=== PATIENT | female | born 1995 | race Two or more races ===

== ENCOUNTER 2024-05-07 10:18 | Outpatient (AMB) | payer MEDICAID, SELFPAY ==
[2024-05-07 10:36] VITALS: BP 110/73; PULSE 99; RESP 18; TEMP 36.8; O2SAT 95; BMI 23.9
--- NOTE | 2024-05-07 10:36 | OBCLNT_ITS ---
Vital Signs 05/07/24 10:36 Height 1.68 m Height Method Stated Weight 67.642 kg Weight Measurement Method Standing Scale BMI 23.9 BP 110/73 Blood Pressure Source Automatic Cuff Blood Pressure Location Left Upper Arm Position Sitting Respiration 18 Pulse 99 Pulse Source Monitor Temp 98.3 F Temp Source Oral Pulse Oximetry (%) 95 Oxygen Delivery Method Room Air Allergies/Home Meds Allergies & Medications Allergies No Known Allergies Allergy (Verified 05/07/24 10:38) Medication Reconciliation No Known Home Medications 05/07/24 [History Confirmed 05/07/24] Intake Visit Data Collection New Patient or Established: Established Patient (seen at [facility] within 3 years) Reason for Visit:: care Seen by Clinical Staff ONLY (RN/MA): No Technical Applications Scientist Required: Yes Technical Applications Scientist's name/title: Regla Santacruz Do You Feel Safe at Home: Yes Authorities Contacted: N/A PCP or OBGYN visit in last 3 months: No Hx Now: Yes Are you currently on any form of Control: No Last menstrual period: 10/09/23 Pain Present Currently: No Pain Scale Used: Newberry-Hernandez/Numerical Pain scale:: 0 Smoking Status Smoking Status: Never smoker Questionnaires Covid-19 Vaccine Questionnaire Has patient been vacinated for Covid-19 Have you been vacinated for Covid-19: No PHQ-9 PHQ-2 Over the last 2 weeks, how often have you been bothered by any of the following problems? 1. Little interest or pleasure in doing things: not at all 2. Feeling down, depressed, or hopeless: not at all Total score: 0 PHQ-9 3. Trouble falling or staying asleep, or sleeping too much: Not at all 4. Feeling tired or having little energy: Not at all 5. Poor appetite or overeating: Not at all 6. Feeling bad about yourself - or that you are a failure or have let yourself or your family down: Not at all 7. Trouble concentrating on things, such as reading the newspaper or watching television: Not at all 8. Moving or speaking so slowly that other people could have noticed? - Or the opposite - being so fidgety or restless that you have been moving around a lot more than usual: not at all 9. Thoughts that you would be better off or of hurting yourself in some way: Not at all Total score: 0 Source: Developed by Drs. Jose Manuel Jauregui, Jessika Blankenship, Long Kang and colleagues, with an educational eugene from [employer]. Depression screen completed yes Social History Living Situation History Marital Status: Single Lives With: Family Housing: House Tobacco History Smoking Status: Never smoker Second Hand Smoke Exposure: No Alcohol History Alcohol Intake: Never Substance Use History Substance Use: none Domestic Abuse History Do You Feel Safe at Home: Yes Past Medical History Past Medical History Have you ever been diagnosed with any of the following: Neurological Problems Cerebrovascular Accident (CVA): No Transient Ischemic Attacks (TIA): No Dementia: No Alzheimer's Disease: No Parkinson's Disease: No Brain Tumor: No Meningitis: No Seizures: No Epilepsy: No Multiple Sclerosis: No Cerebral Palsy: No Amyotrophic Lateral Sclerosis (ALS/Lizeth Gehrig's): No Guillain-O[place] Syndrome: No Spina Bifida: No Paralysis: No Peripheral Neuropathy: No Madrigal's Palsy: No Subdural Hematoma: No Migraine: No Head Trauma: No Spinal Cord Injury: No Traumatic Brain Injury: No Cardiology Problems Myocardial Infarction: No Cardiac Arrhythmia: No Atrial Fibrillation: No Angina: No Heart Murmur: No Respiratory Problems Chronic Obstructive Pulmonary Disease (COPD): No Asthma: No Bronchitis: No Emphysema: No Pneumonia: No Pulmonary Fibrosis: No Tuberculosis: No Pulmonary Embolism: No Pulmonary Edema: No Hx Cough: No Cough: No Wheezing: No Chest Deformities: No Smoking: No Smoking Exposure: No Tobacco Use: No Stomache/Intestinal Problems Liver Cancer: No Hepatitis: No Cirrhosis: No Pancreatic Cancer: No Pancreatitis: No Celiac Disease: No Gall Bladder Disease: No Genital/Urinary Problems Chronic Kidney Disease: No Renal Disease: No Kidney Stones: No Polycystic Kidney Disease: No Neurogenic Bladder: No Inguinal Hernia: No Dialysis: No Prostate Cancer: No Benign Prostatic Hyperplasia: No Reproductive Problems Breast Cancer: No Endometriosis: No Fibroids: No Genital Herpes: No Gonorrhea: No Pelvic Inflammatory Disease: No Polycystic Ovarian Syndrome: No Previous Pregnancies: Yes Syphilis: No Testicular Cancer: No Uterine Prolapse: No Musculoskeletal Problems Muscular Dystrophy: No Myasthenia Gravis: No Marfan's Syndrome: No Bone Cancer: No Arthritis: No Head,Eye,Nose,Throat Problems Cataracts: No Glaucoma: No Blind: No Retinal Detachment: No Macular Degeneration: No Chronic Ear Infections: No Deafness: No Eye Prosthesis: No Endocrine Problems Diabetes Mellitus Type 1: No Diabetes Mellitus Type 2: No Hypoglycemia: No [place]'s Syndrome: No José's Disease: No Hyperthyroidism: No Hypothyroidism: No Thyroid Cancer: No Parathyroid Disease: No Pituitary Disease: No Systemic Lupus Erythematosus: No Syndrome of Inappropriate Antidiuretic Hormone: No Adrenal Disease: No Graves' Disease: No Blood Problems Anemia: No Leukemia: No Hemophilia: No Thalassemia: No Sickle Cell Disease: No Clotting Problems: No Psychologic Problems Schizophrenia: No Recreational Drug Use: No Bipolar Disorder: No Depression: No Anxiety: No Other Problems Hospitalization: No Autoimmune Disease: No Down Syndrome: No Autism: No Developmental Delay: No Cosmetic Surgery: No Surgical History Angioplasty: No Appendectomy: No Bariatric Surgery: No History of Present Illness HPI Narrative Patient presents for transfer of care from [facility]. Her last menstrual period was 10/31/2023, which is uncertain. First ultrasound on 01/02/2024 at 14 weeks and 2 days estimated due date of 06/30/2024. Second ultrasound on 03/12/2024 at 24 weeks and 4 days confirmed due date of 06/28/2024. Patient is 32 weeks and 2 days estimated gestational age today based on first trimester ultrasound. She reports active movement, denies contractions or other problems. Fetus is male. She is a 28-year-old A1 female @32w2d with a history of two previous sections in [place] in 2015 and 2018, both pregnancies carried to full term. Patient's hemoglobin level was 9.5 on March 27. Initial labs showed blood group A-positive, antibody screen negative, urobella non-immune, RPR non-reactive, hepatitis B surface antigen-negative, HIV-negative, gonorrhea and chlamydia-negative, one-hour glucose tolerance was 122. Plan for a future ultrasound to measure the baby's weight. Diagnostic Test Results and Labs: - First ultrasound (01-02-2024): 14 weeks and 2 days, estimated due date 06-30-24 - Second ultrasound (03-12-2024): 24 weeks and 4 days, due date 06-28-2024 - Initial labs (11-21-2023): Blood group: A-positive Antibody screen: negative Rubella: non-immune RPR: non-reactive Hepatitis B surface antigen: negative HIV: negative Gonorrhea and chlamydia: negative - One-hour glucose tolerance test (03-27-2024): 122 - Hemoglobin (03-27-2024): 9.5 - Cystic fibrosis screening: negative - NIPT (Non-Invasive Testing): negative - AFP (Alpha-Fetoprotein): negative OB Initial Visit Menstrual History Menstrual reliability: unknown Flow: normal Menstrual regularity: regular Monthly: Yes Age at menarche: 11 On control pills at conception: No Date of positive home test: 11/21/23 Associated symptoms (LMP): Reports amenorrhea and other (leg cramps) OB History : 4 Para: 2 Hx # Pregnancies: 0 Hx Total # of Abortions (Spontaneous & Elective): 1 # of Living Children: 2 Delivery History 1st : Child's name: Joseph date: 02/05/16 sex: male Gestational age at delivery (weeks): 40 Delivery type: History of depression before or after : No 2nd : Child's name: Xavier date: 01/29/19 sex: male Gestational age at delivery (weeks): 38 Delivery type: History of depression before or after : No Infection History & Risk Evaluation History of STDs: none HIV risk evaluation: low risk Hepatitis B risk evaluation: low risk Patient or partner has history of Genital Herpes: No Varicella/chicken pox status: immunized Genetic Screening & History Genetic Screening/Teratology Counseling - Includes patient, baby's father, or anyone in either family with: 1. Patient's age 35 years or older as of estimated date of delivery: No 2. Thalassemia (Mongolian, Czech, Mediterranean, or Background); MCV less than 80: No 3. Neural Tube Defect (Meningomyelocele, Spina Bifida, or Anencephaly): No 4. Congenital Heart Defect: No 5. Down Syndrome: No 6. Nader-Sachs (Ashkenazi Scientologist, Cajun, [place]): No 7. Reynold Disease (Ashkenazi Scientologist): No 8. Familial Dysautonomia (Ashkenazi Scientologist): No 9. Sickle Cell Disease or Trait (): No 10. Hemophilia or other blood disorders: No 11. Muscular Dystrophy: No 12. Cystic Fibrosis: No 13. Tasneem's Chorea: No 14. Mental Retardation/Autism: No 15. Other inherited genetic or chromosomal disorder: No 16. Maternal Metabolic Disorder (EG,TYPE 1 Diabetes, PKU): No 17. Patient or baby's father had a child with defects not listed above: No 18. Recurrent loss or a stillbirth: No 19. Medications (including supplements, vitamins, herbs or otc drugs)/illicit/recreational drugs/alcohol since last menstrual period: No 20. Any other: No Infection History 1. Live with someone with TB or exposed to TB: No 2. Rash or viral illness since last menstrual period: No 3. Hepatitis B,C: No Other (see comments) Source: [employer] OB Flowsheet OB Flowsheet Initial Weight: Not Recorded Date -?-?-?-?-?-?-?-?-?-?-?-?- EGA Weight Edema CTX Effacement BP Fundal ht Pres Dilation Effacement Station Visit Note Alb Glu FHR Mov 05/07/24 -?-?-?-?-?-?-?-?-?-?-?-?- 32w 2d 67.642 kg 110/73 150 Review of Systems Review of Systems Systems Reviewed: All systems reviewed, normal except as documented Genitourinary Genitourinary: Reports amenorrhea Exam General Limitations: no limitations General Appearance: alert, in no apparent distress, comfortable, cooperative, healthy appearing, well developed and well groomed Head Head exam: atraumatic, normocephalic and normal inspection Neck Neck exam: Present normal inspection, full ROM and trachea midline Chest Chest inspection: Present normal inspection and symmetric chest wall rise Abdominal Abdominal exam: Present soft and normal bowel sounds Extremities Extremities exam: Present normal inspection and full ROM Back Back exam: Present normal inspection and full ROM Psych Psychiatric exam: Present normal affect and normal mood Skin Skin exam: Present warm, dry, intact and normal color Assessment & Plan Diagnosis / Problem List (1) Maternal care for low transverse scar from previous delivery: Status: Acute Plan: Follow-up, 32 weeks 2 days gestation: - A1 female, [facility] 06/30/2024 based on first trimester ultrasound. - RCS 06/24/2024@12:30 - Transferred care from [facility]. - History of two previous full-term sections in [place]. - Current : male fetus. - labs: A positive, antibody screen negative, rubella non-immune, RPR non-reactive, hepatitis B surface antigen negative, HIV negative, gonorrhea and chlamydia negative. - One-hour glucose tolerance test 122 on 03/27/2024. - Hemoglobin 9.5 on 03/27/2024. - Cystic fibrosis screening, NIPT, and AFP negative. - heart rate 150 bpm, noted as normal. Management Plan: - Schedule section due to history of two previous sections. - Follow-up appointment in 2 weeks. - Schedule ultrasound for weight estimation after next visit. - Continue vitamins. (2) Anemia affecting in third trimester: Status: Acute (3) Supervision of high risk , unspecified, third trimester: Status: Acute Office Procedures OB Clinic LOC & Office Proc's Nursing/Assessment Patient Status: Initial/New Patient OB Clinic Nursing Assessment: Medication Reconciliation, Update PMH in EMR and Vital Signs OB Clinic Coordination of Care: Complex Care and Chronic Disease 1-5, Consent,records obtained, informed consent, Education Simp Pt/Fam, Results/Orders obtained and Staff clarify orders Special Needs: Heart tones New Patient Charge New Patient Point Assignment: [id number] New Patient Point Charge: CLERICAL PRODUCTION WORKER Level 4 ([id number])
== END 2024-05-07 10:46 | disposition home or self-care (01) ==
LOC: HODSOBC 10:18
PROVIDERS: Supervising Provider Obstetrics & Gynecology; Visit Provider Obstetrics & Gynecology
DX: O99.013 Anemia complicating pregnancy, third trimester (principal); O34.211 Maternal care for low transverse scar from previous cesarean delivery; O09.93 Supervision of high risk pregnancy, unspecified, third trimester; Z3A.32 32 weeks gestation of pregnancy
CPT/HCPCS: 99204; 99214; G0463

== ENCOUNTER 2024-05-30 15:08 | Outpatient (AMB) | payer MEDICAID, SELFPAY ==
[2024-05-30 15:19] VITALS: BP 116/74; PULSE 98; RESP 18; TEMP 36.8; O2SAT 98; BMI 24.8
--- NOTE | 2024-05-30 15:19 | OBCLNT_ITS ---
Vital Signs 05/30/24 15:19 Height 1.68 m Height Method Stated Weight 70.08 kg Weight Measurement Method Standing Scale BMI 24.8 BP 116/74 Blood Pressure Source Automatic Cuff Blood Pressure Location Left Upper Arm Position Sitting Respiration 18 Pulse 98 Pulse Source Monitor Temp 98.2 F Temp Source Oral Pulse Oximetry (%) 98 Oxygen Delivery Method Room Air Allergies/Home Meds Allergies & Medications Allergies No Known Allergies Allergy (Verified 05/30/24 15:20) Medication Reconciliation No Known Home Medications 05/07/24 [History Confirmed 05/30/24] Intake Visit Data Collection New Patient or Established: Established Patient (seen at [facility] within 3 years) Reason for Visit:: CARE Seen by Clinical Staff ONLY (RN/MA): No Harvest Manager Required: No Do You Feel Safe at Home: Yes Authorities Contacted: N/A PCP or OBGYN visit in last 3 months: Yes Date of Last PCP or OBGYN visit: 05/07/24 Are you currently on any form of Control: No Last menstrual period: 10/10/23 Pain Present Currently: No Pain Scale Used: Newberry-Hernandez/Numerical Pain scale:: 0 Smoking Status Smoking Status: Never smoker Questionnaires Covid-19 Vaccine Questionnaire Has patient been vacinated for Covid-19 Have you been vacinated for Covid-19: Yes PHQ-9 PHQ-2 Over the last 2 weeks, how often have you been bothered by any of the following problems? 1. Little interest or pleasure in doing things: not at all 2. Feeling down, depressed, or hopeless: not at all Total score: 0 PHQ-9 3. Trouble falling or staying asleep, or sleeping too much: Not at all 4. Feeling tired or having little energy: Not at all 5. Poor appetite or overeating: Not at all 6. Feeling bad about yourself - or that you are a failure or have let yourself or your family down: Not at all 7. Trouble concentrating on things, such as reading the newspaper or watching television: Not at all 8. Moving or speaking so slowly that other people could have noticed? - Or the opposite - being so fidgety or restless that you have been moving around a lot more than usual: not at all 9. Thoughts that you would be better off or of hurting yourself in some way: Not at all Total score: 0 Source: Developed by Drs. Jose Manuel Jauregui, Jessika Blankenship, Long Kang and colleagues, with an educational eugene from [email or web address]. Depression screen completed yes Social History Living Situation History Lives With: Family Housing: House Tobacco History Smoking Status: Never smoker Second Hand Smoke Exposure: No Alcohol History Alcohol Intake: Never Substance Use History Substance Use: none Domestic Abuse History Do You Feel Safe at Home: Yes Past Medical History Past Medical History Have you ever been diagnosed with any of the following: Neurological Problems Cerebrovascular Accident (CVA): No Transient Ischemic Attacks (TIA): No Dementia: No Alzheimer's Disease: No Parkinson's Disease: No Brain Tumor: No Meningitis: No Seizures: No Epilepsy: No Multiple Sclerosis: No Cerebral Palsy: No Amyotrophic Lateral Sclerosis (ALS/Lizeth Gehrig's): No Guillain-[place] Syndrome: No Spina Bifida: No Paralysis: No Peripheral Neuropathy: No Madrigal's Palsy: No Subdural Hematoma: No Migraine: No Head Trauma: No Spinal Cord Injury: No Traumatic Brain Injury: No Cardiology Problems Myocardial Infarction: No Cardiac Arrhythmia: No Atrial Fibrillation: No Angina: No Heart Murmur: No Congenital Heart Disease: No Valvular Heart Disease: No Rheumatic Fever: No Cardiomyopathy: No Edema: No Pericarditis: No Hypertension: No Respiratory Problems Chronic Obstructive Pulmonary Disease (COPD): No Asthma: No Bronchitis: No Emphysema: No Pneumonia: No Pulmonary Fibrosis: No Tuberculosis: No Pulmonary Embolism: No Pulmonary Edema: No Hx Cough: No Cough: No Wheezing: No Chest Deformities: No Smoking: No Smoking Exposure: No Tobacco Use: No Stomache/Intestinal Problems Liver Cancer: No Hepatitis: No Cirrhosis: No Pancreatic Cancer: No Pancreatitis: No Celiac Disease: No Gall Bladder Disease: No Ulcerative Colitis: No Diverticulitis: No Diverticulosis: No Ulcer: No Crohn's Disease: No Obstructive Bowel: No Hiatal Hernia: No Genital/Urinary Problems Chronic Kidney Disease: No Renal Disease: No Kidney Stones: No Polycystic Kidney Disease: No Neurogenic Bladder: No Inguinal Hernia: No Dialysis: No Prostate Cancer: No Benign Prostatic Hyperplasia: No Reproductive Problems Breast Cancer: No Endometriosis: No Fibroids: No Genital Herpes: No Gonorrhea: No Pelvic Inflammatory Disease: No Polycystic Ovarian Syndrome: No Previous Pregnancies: Yes Syphilis: No Testicular Cancer: No Uterine Prolapse: No Musculoskeletal Problems Muscular Dystrophy: No Myasthenia Gravis: No Marfan's Syndrome: No Bone Cancer: No Arthritis: No Gout: No Scoliosis: No Carpal Tunnel Syndrome: No Fibromyalgia: No Fractures: No Degenerative Joint Disease: No Osteomyelitis: No Head,Eye,Nose,Throat Problems Cataracts: No Glaucoma: No Blind: No Retinal Detachment: No Macular Degeneration: No Chronic Ear Infections: No Deafness: No Eye Prosthesis: No Endocrine Problems Diabetes Mellitus Type 1: No Diabetes Mellitus Type 2: No Hypoglycemia: No Cherelle's Syndrome: No [place]'s Disease: No Hyperthyroidism: No Hypothyroidism: No Thyroid Cancer: No Parathyroid Disease: No Pituitary Disease: No Systemic Lupus Erythematosus: No Syndrome of Inappropriate Antidiuretic Hormone: No Adrenal Disease: No Graves' Disease: No Blood Problems Anemia: No Leukemia: No Hemophilia: No Thalassemia: No Sickle Cell Disease: No Clotting Problems: No Psychologic Problems Schizophrenia: No Recreational Drug Use: No Bipolar Disorder: No Depression: No Anxiety: No Other Problems Hospitalization: No Down Syndrome: No Autism: No Developmental Delay: No Cosmetic Surgery: No Hepatitis A: No Hepatitis B: No Hepatitis C: No Communicable Disease: No Cancer: No Cervical Cancer: No Lung Cancer: No Ovarian Cancer: No Surgical History Angioplasty: No Appendectomy: No Bariatric Surgery: No History of Present Illness HPI Narrative History of Present Illness: Patient presents for transfer of care from [facility]. Her last menstrual period was 10/31/2023, which is uncertain. First ultrasound on 01/02/2024 at 14 weeks and 2 days estimated due date of 06/30/2024. Second ultrasound on 03/12/2024 at 24 weeks and 4 days confirmed due date of 06/28/2024. Patient is 32 weeks and 2 days estimated gestational age today based on first trimester ultrasound. She reports active movement, denies contractions or other problems. Fetus is male. She is a 28-year-old A1 female with a history of two previous sections in [place] in 2015 and 2018, both pregnancies carried to full term. Patient's hemoglobin level was 9.5 on March 27. Initial labs showed blood group A-positive, antibody screen negative, urobella non-immune, RPR non- reactive, hepatitis B surface antigen-negative, HIV-negative, gonorrhea and chlamydia-negative, one-hour glucose tolerance was 122. Plan for a future ultrasound to measure the baby's weight. Diagnostic Test Results and Labs: - First ultrasound (01-02-2024): 14 weeks and 2 days, estimated due date 06-30-24 - Second ultrasound (03-12-2024): 24 weeks and 4 days, due date 06-28-2024 - Initial labs (11-21-2023): Blood group: A-positive Antibody screen: negative Rubella: non-immune RPR: non-reactive Hepatitis B surface antigen: negative HIV: negative Gonorrhea and chlamydia: negative - One-hour glucose tolerance test (03-27-2024): 122 - Hemoglobin (03-27-2024): 9.5 - Cystic fibrosis screening: negative - NIPT (Non-Invasive Testing): negative - AFP (Alpha-Fetoprotein): negative female presents for routine visit at 35 weeks and 4 days gestation. Patient reports experiencing back pain and groin pain. The pain occurs intermittently, approximately every 20 minutes, particularly when getting up from bed. No contractions or other problems reported. Review of Systems Review of Systems Systems Reviewed: All systems reviewed, normal except as documented Visit [facility] Calculator Estimated Delivery Date Method Current WG Current Estimate 06/30/24 Ultrasound #1 36w 2d Other Estimates 08/06/24 LMP (Uncertain) 31w 0d 06/28/24 Ultrasound #2 36w 4d Initial Weight: Not Recorded Date -?-?-?-?-?-?-?-?-?-?-?-?- EGA Weight Edema CTX Effacement BP Fundal ht Pres Dilation Effacement Station Visit Note Alb Glu FHR Mov 05/07/24 -?-?-?-?-?-?-?-?-?-?-?-?- 32w 2d 67.642 kg 110/73 150 Exam General Limitations: no limitations General Appearance: alert, in no apparent distress, comfortable, cooperative, healthy appearing, well developed and well groomed Head Head exam: atraumatic, normocephalic and normal inspection Eye Eye exam: Present normal appearance, PERRL and EOMI ENT ENT exam: Present normal exam, normal oropharynx and mucous membranes moist Neck Neck exam: Present normal inspection, full ROM and trachea midline Chest Chest inspection: Present normal inspection and symmetric chest wall rise Resp Respiratory exam: Present normal lung sounds bilaterally Card Cardiovascular exam: Present regular rate, normal rhythm and normal heart sounds Abdominal Abdominal exam: Present soft and normal bowel sounds Extremities Extremities exam: Present normal inspection and full ROM Back Back exam: Present normal inspection and full ROM Neuro Neurological exam: Present alert, oriented X3 and CN II-XII intact Psych Psychiatric exam: Present normal affect and normal mood Skin Skin exam: Present warm, dry, intact and normal color Assessment & Plan Diagnosis / Problem List (1) Maternal care for low transverse scar from previous delivery: Status: Acute (2) Anemia affecting in third trimester: Status: Acute (3) Supervision of high risk , unspecified, third trimester: Status: Acute Plan: at 35 weeks 4 days gestation Patient presents for routine visit at 35 weeks and 4 days gestation. She reports intermittent back and groin pain occurring approximately every 20 minutes, particularly when getting up from bed. heart rate is 155 bpm, which is within normal limits. The patient's symptoms are consistent with normal third trimester discomfort and do not currently indicate active labor. - Follow up appointment scheduled in one week - Group B Streptococcus (GBS) screening to be performed at next appointment - Patient instructed to go to the hospital if contractions become more frequent (every 5-10 minutes) - Scheduled on June 24 - Disability paperwork to be extended by physician until date and for 2 months Additional Plan Follow Up: 1 Week Office Procedures OB Clinic LOC & Office Proc's Nursing/Assessment Patient Status: Established Patient OB Clinic Nursing Assessment: Medication Reconciliation, Update PMH in EMR and Vital Signs OB Clinic Coordination of Care: Complex Care and Chronic Disease 1-5, Consent,records obtained, informed consent, Education Simp Pt/Fam and Staff clarify orders Special Needs: Heart tones Established Patient Charge Established Patient Point Assignment: 115 Established Patient Point Charge: EP Level 3 (80-115)
== END 2024-05-30 15:50 | disposition home or self-care (01) ==
LOC: HODSOBC 15:08
PROVIDERS: PCP Obstetrics & Gynecology; Referring Provider Obstetrics & Gynecology; Supervising Provider Obstetrics & Gynecology; Visit Provider Obstetrics & Gynecology
DX: O99.013 Anemia complicating pregnancy, third trimester (principal); D64.9 Anemia, unspecified; O34.211 Maternal care for low transverse scar from previous cesarean delivery; N85.8 Other specified noninflammatory disorders of uterus; O09.93 Supervision of high risk pregnancy, unspecified, third trimester; Z3A.35 35 weeks gestation of pregnancy
CPT/HCPCS: 99213; G0463

== ENCOUNTER 2024-06-04 14:12 | Outpatient (AMB) | payer MEDICAID, SELFPAY ==
[2024-06-04 14:40] VITALS: BP 113/79; PULSE 96; RESP 16; TEMP 35.7; O2SAT 99; BMI 24.9
--- NOTE | 2024-06-04 14:40 | AMB.OBVISIT ---
Vital Signs 06/04/24 14:40 Height 1.68 m Height Method Stated Weight 70.364 kg Weight Measurement Method Standing Scale BMI 24.9 BP 113/79 Blood Pressure Source Automatic Cuff Blood Pressure Location Left Upper Arm Position Sitting Respiration 16 Pulse 96 Pulse Source Monitor Temp 96.3 F L Temp Source Oral Pulse Oximetry (%) 99 Oxygen Delivery Method Room Air Allergies/Home Meds Allergies & Medications Allergies No Known Allergies Allergy (Verified 06/24/24 10:49) Medication Reconciliation ferrous sulfate 325 mg (65 mg iron) tablet (FeroSul) mg 06/24/24 [History] docusate sodium 100 mg capsule (Stool Softener) 100 mg PO QDAY 30 days #30 caps 06/25/24 [Rx] Intake Visit Data Collection New Patient or Established: Established Patient (seen at [facility] within 3 years) Reason for Visit:: - Routine visit - Question about disability extension Seen by Clinical Staff ONLY (RN/MA): No Production Machine Computer Operator Required: Yes Production Machine Computer Operator's name/title: STEVENSON FINNEGAN / NURSE PRACTITIONER Do You Feel Safe at Home: Yes Authorities Contacted: N/A PCP or OBGYN visit in last 3 months: Yes Date of Last PCP or OBGYN visit: 05/30/24 Hx Now: Yes Are you currently on any form of Control: No Pain Present Currently: No Pain Scale Used: Newberry-Hernandez/Numerical Pain scale:: 0 Smoking Status Smoking Status: Never smoker Questionnaires PHQ-9 PHQ-2 Over the last 2 weeks, how often have you been bothered by any of the following problems? 1. Little interest or pleasure in doing things: not at all 2. Feeling down, depressed, or hopeless: not at all Total score: 0 PHQ-9 3. Trouble falling or staying asleep, or sleeping too much: Not at all 4. Feeling tired or having little energy: Not at all 5. Poor appetite or overeating: Not at all 6. Feeling bad about yourself - or that you are a failure or have let yourself or your family down: Not at all 7. Trouble concentrating on things, such as reading the newspaper or watching television: Not at all 8. Moving or speaking so slowly that other people could have noticed? - Or the opposite - being so fidgety or restless that you have been moving around a lot more than usual: not at all 9. Thoughts that you would be better off or of hurting yourself in some way: Not at all Total score: 0 If you checked off any problems, how difficult have these problems made it for you to do your work, take care of things at home, or get along with other people?: not difficult at all Source: Developed by Drs. Jose Manuel Jauregui, Jessika Blankenship, Long Kang and colleagues, with an educational eugene from [employer]. Depression screen completed yes Social History Living Situation History Marital Status: Lives With: Family Housing: House Tobacco History Smoking Status: Never smoker Second Hand Smoke Exposure: No Alcohol History Alcohol Intake: Never Substance Use History Substance Use: none Domestic Abuse History Do You Feel Safe at Home: Yes Past Medical History Past Medical History Have you ever been diagnosed with any of the following: Neurological Problems Cerebrovascular Accident (CVA): No Transient Ischemic Attacks (TIA): No Dementia: No Alzheimer's Disease: No Parkinson's Disease: No Brain Tumor: No Meningitis: No Seizures: No Epilepsy: No Multiple Sclerosis: No Cerebral Palsy: No Amyotrophic Lateral Sclerosis (ALS/Lizeth Gehrig's): No Guillain-[place] Syndrome: No Spina Bifida: No Paralysis: No Peripheral Neuropathy: No Madrigal's Palsy: No Subdural Hematoma: No Migraine: No Head Trauma: No Spinal Cord Injury: No Traumatic Brain Injury: No Cardiology Problems Myocardial Infarction: No Cardiac Arrhythmia: No Atrial Fibrillation: No Angina: No Heart Murmur: No Congenital Heart Disease: No Valvular Heart Disease: No Rheumatic Fever: No Cardiomyopathy: No Edema: No Pericarditis: No Hypertension: No Respiratory Problems Chronic Obstructive Pulmonary Disease (COPD): No Asthma: No Bronchitis: No Emphysema: No Pneumonia: No Pulmonary Fibrosis: No Tuberculosis: No Pulmonary Embolism: No Pulmonary Edema: No Hx Cough: No Cough: No Wheezing: No Chest Deformities: No Smoking: No Smoking Exposure: No Tobacco Use: No Stomache/Intestinal Problems Liver Cancer: No Hepatitis: No Cirrhosis: No Pancreatic Cancer: No Pancreatitis: No Celiac Disease: No Gall Bladder Disease: No Ulcerative Colitis: No Diverticulitis: No Diverticulosis: No Ulcer: No Crohn's Disease: No Obstructive Bowel: No Hiatal Hernia: No Genital/Urinary Problems Renal Disease: No Kidney Stones: No Polycystic Kidney Disease: No Neurogenic Bladder: No Inguinal Hernia: No Dialysis: No Prostate Cancer: No Benign Prostatic Hyperplasia: No Reproductive Problems Breast Cancer: No Endometriosis: No Fibroids: No Genital Herpes: No Gonorrhea: No Pelvic Inflammatory Disease: No Polycystic Ovarian Syndrome: No Previous Pregnancies: Yes Syphilis: No Testicular Cancer: No Uterine Prolapse: No Musculoskeletal Problems Muscular Dystrophy: No Myasthenia Gravis: No Marfan's Syndrome: No Bone Cancer: No Arthritis: No Gout: No Scoliosis: No Carpal Tunnel Syndrome: No Fibromyalgia: No Fractures: No Degenerative Joint Disease: No Osteomyelitis: No Head,Eye,Nose,Throat Problems Cataracts: No Glaucoma: No Blind: No Retinal Detachment: No Macular Degeneration: No Chronic Ear Infections: No Deafness: No Eye Prosthesis: No Endocrine Problems Diabetes Mellitus Type 1: No Diabetes Mellitus Type 2: No Hypoglycemia: No Cherelle's Syndrome: No José's Disease: No Hyperthyroidism: No Hypothyroidism: No Thyroid Cancer: No Parathyroid Disease: No Pituitary Disease: No Systemic Lupus Erythematosus: No Syndrome of Inappropriate Antidiuretic Hormone: No Adrenal Disease: No Graves' Disease: No Blood Problems Anemia: No Leukemia: No Hemophilia: No Thalassemia: No Sickle Cell Disease: No Clotting Problems: No Psychologic Problems Schizophrenia: No Recreational Drug Use: No Bipolar Disorder: No Depression: No Anxiety: No Other Problems Hospitalization: No Down Syndrome: No Autism: No Developmental Delay: No Cosmetic Surgery: No Hepatitis A: No Hepatitis B: No Hepatitis C: No Communicable Disease: No Cancer: No Cervical Cancer: No Lung Cancer: No Ovarian Cancer: No Surgical History Angioplasty: No Appendectomy: No Bariatric Surgery: No History of Present Illness HPI Narrative - Chayito Villanueva is a woman presenting for a routine visit. - She is scheduled for a on June 24, 2024. - The patient has a previous vertical incision from a procedure performed in [place]. - Dr. Camarillo confirmed with the patient that the same incision site will be used for the upcoming . - heart rate was noted to be 145 bpm, which was described as normal. - The patient is transitioning to weekly visits. - An extension was provided for the patient's existing disability coverage. No contractions/ LOF/VB, reports good FM No HARDIN/VC/RUQ/Epig pain Visit [facility] Calculator Estimated Delivery Date Method Current WG Current Estimate 06/30/24 Ultrasound #1 40w 5d Other Estimates 08/06/24 LMP (Uncertain) 35w 3d 06/28/24 Ultrasound #2 41w 0d Initial Weight: Not Recorded Date <del>?</del> EGA Weight Edema CTX Effacement BP Fundal ht Pres Dilation Effacement Station Visit Note Alb Glu FHR Mov 05/07/24 <del>?</del> 32w 2d 67.642 kg 110/73 150 06/04/24 <del>?</del> 36w 2d 70.364 kg 113/79 No CTX/LOF/VB. Reports good FM. No HARDIN/VS, Epig/RUQ pain. Scheduled for on 06/24/2024. History of vertical incision in [place]?confirmed to use same incision site. Transitioning to weekly visits. Requested disability extension. FHR: 145 bpm (normal). Assessment & Plan: Term with prior vertical . Stable course. Continue weekly visits Schedule GBS screen at next visit confirmed for 06/24/2024 Disability extension processed Use previous vertical incision site for delivery Reviewed signs of labor and routine counseling 145 active 06/18/24 <del>?</del> 38w 2d 84.538 kg 108/67 - A0 L2 - Current : - Scheduled on June 24, 2024 - 2 previous C-sections No contractions/ LOF/VB, reports good FM No HARDIN/VC/RUQ/Epig pain Patient to arrive at the hospital at 10:00 AM on the day of surgery, entering through the main door. No food or drink after 10:00 PM the night before the procedure. No further appointments scheduled before the date. 145 Exam General General Appearance: alert, in no apparent distress and healthy appearing Head Head exam: atraumatic Neck Neck exam: Present normal inspection and trachea midline Chest Chest inspection: Present normal inspection and symmetric chest wall rise External exam: Present normal external exam; Absent tenderness Neuro Neurological exam: Present oriented X3 Psych Psychiatric exam: Present normal affect and normal mood Assessment & Plan Diagnosis / Problem List (1) Maternal care for low transverse scar from previous delivery: Status: Acute (2) Supervision of high risk , unspecified, third trimester: Status: Acute Plan Problem List - - History of section Assessment - Patient is and scheduled for on the - Patient has a previous vertical incision from a procedure in [place] - heart rate 145 bpm, noted as normal - Patient is on disability, extension provided Plan - Weekly appointments scheduled - Group B Streptococcus (GBS) screening at next visit - scheduled for June 24, 2024 - Disability extension processed - Vertical incision from previous to be used for upcoming procedure Educated the patient on labor signs, including regular contractions, lower back pain, and changes in vaginal discharge. Advised avoiding heavy lifting and getting adequate rest. Instructed to contact the office immediately if any signs occur. Discussed the importance of a balanced diet rich in folic acid, iron, and calcium, and provided a list of recommended and to-avoid foods. Emphasized avoiding high-sugar foods to reduce gestational diabetes risk. Encouraged hydration and frequent, small meals for energy.. Office Procedures OB Clinic LOC & Office Proc's Nursing/Assessment Patient Status: Established Patient OB Clinic Nursing Assessment: BP Monitoring, Medication Reconciliation, Update PMH in EMR and Vital Signs OB Clinic Coordination of Care: Consent,records obtained, informed consent, Education Simp Pt/Fam and Staff clarify orders Special Needs: Heart tones Established Patient Charge Established Patient Point Assignment: 105 Established Patient Point Charge: EP Level 3 (80-115)
== END 2024-06-04 14:54 | disposition home or self-care (01) ==
LOC: HODSOBC 14:12
PROVIDERS: PCP Obstetrics & Gynecology; Referring Provider Obstetrics & Gynecology; Supervising Provider Obstetrics & Gynecology; Visit Provider Obstetrics & Gynecology
DX: O09.93 Supervision of high risk pregnancy, unspecified, third trimester (principal); O34.211 Maternal care for low transverse scar from previous cesarean delivery; Z3A.36 36 weeks gestation of pregnancy
CPT/HCPCS: 99213; G0463

== ENCOUNTER 2024-06-11 15:06 | Outpatient (AMB) | payer MEDICAID, SELFPAY ==
[2024-06-11 15:37] VITALS: BP 114/68; PULSE 78; RESP 18; TEMP 36.8; O2SAT 98; BMI 25.0
--- NOTE | 2024-06-11 15:37 | OBCLNT_ITS ---
Vital Signs 06/11/24 15:37 Height 1.68 m Height Method Stated Weight 70.76 kg Weight Measurement Method Standing Scale BMI 25.0 BP 114/68 Blood Pressure Source Automatic Cuff Blood Pressure Location Left Upper Arm Position Sitting Respiration 18 Pulse 78 Pulse Source Monitor Temp 98.2 F Temp Source Oral Pulse Oximetry (%) 98 Oxygen Delivery Method Room Air Allergies/Home Meds Allergies & Medications Allergies No Known Allergies Allergy (Verified 06/18/24 15:38) Medication Reconciliation No Known Home Medications 05/07/24 [History Confirmed 06/18/24] Intake Visit Data Collection New Patient or Established: Established Patient (seen at [facility] within 3 years) Reason for Visit:: OBC Seen by Clinical Staff ONLY (RN/MA): No Extension Service Specialist In Charge Required: Yes Extension Service Specialist In Charge's name/title: STEVENSON FINNEGAN/ MEDICAL ASSITANT Do You Feel Safe at Home: Yes Authorities Contacted: N/A PCP or OBGYN visit in last 3 months: Yes Date of Last PCP or OBGYN visit: 06/04/24 Hx Now: No Are you currently on any form of Control: No Pain Present Currently: No Pain Scale Used: Newberry-Hernandez/Numerical Pain scale:: 0 Smoking Status Smoking Status: Never smoker Questionnaires Covid-19 Vaccine Questionnaire Has patient been vacinated for Covid-19 Have you been vacinated for Covid-19: Yes PHQ-9 PHQ-2 Over the last 2 weeks, how often have you been bothered by any of the following problems? 1. Little interest or pleasure in doing things: not at all 2. Feeling down, depressed, or hopeless: not at all Total score: 0 PHQ-9 3. Trouble falling or staying asleep, or sleeping too much: Not at all 4. Feeling tired or having little energy: Not at all 5. Poor appetite or overeating: Not at all 6. Feeling bad about yourself - or that you are a failure or have let yourself or your family down: Not at all 7. Trouble concentrating on things, such as reading the newspaper or watching television: Not at all 8. Moving or speaking so slowly that other people could have noticed? - Or the opposite - being so fidgety or restless that you have been moving around a lot more than usual: not at all 9. Thoughts that you would be better off or of hurting yourself in some way: Not at all Total score: 0 If you checked off any problems, how difficult have these problems made it for you to do your work, take care of things at home, or get along with other people?: not difficult at all Source: Developed by Drs. Jose Manuel Jauregui, Jessika Blankenship, Long Kang and colleagues, with an educational eugene from [employer]. Depression screen completed yes Social History Living Situation History Marital Status: Lives With: Family Housing: House Tobacco History Smoking Status: Never smoker Second Hand Smoke Exposure: No Alcohol History Alcohol Intake: Never Substance Use History Substance Use: none Domestic Abuse History Do You Feel Safe at Home: Yes Past Medical History Past Medical History Have you ever been diagnosed with any of the following: Neurological Problems Cerebrovascular Accident (CVA): No Transient Ischemic Attacks (TIA): No Dementia: No Alzheimer's Disease: No Parkinson's Disease: No Brain Tumor: No Meningitis: No Seizures: No Epilepsy: No Multiple Sclerosis: No Cerebral Palsy: No Amyotrophic Lateral Sclerosis (ALS/Lizeth Gehrig's): No Guillain-[place] Syndrome: No Spina Bifida: No Paralysis: No Peripheral Neuropathy: No Madrigal's Palsy: No Subdural Hematoma: No Migraine: No Head Trauma: No Spinal Cord Injury: No Traumatic Brain Injury: No Cardiology Problems Myocardial Infarction: No Cardiac Arrhythmia: No Atrial Fibrillation: No Angina: No Heart Murmur: No Congenital Heart Disease: No Valvular Heart Disease: No Rheumatic Fever: No Cardiomyopathy: No Edema: No Pericarditis: No Hypertension: No Respiratory Problems Chronic Obstructive Pulmonary Disease (COPD): No Asthma: No Bronchitis: No Emphysema: No Pneumonia: No Pulmonary Fibrosis: No Tuberculosis: No Pulmonary Embolism: No Pulmonary Edema: No Hx Cough: No Cough: No Wheezing: No Chest Deformities: No Smoking: No Smoking Exposure: No Tobacco Use: No Stomache/Intestinal Problems Liver Cancer: No Hepatitis: No Cirrhosis: No Pancreatic Cancer: No Pancreatitis: No Celiac Disease: No Gall Bladder Disease: No Ulcerative Colitis: No Diverticulitis: No Diverticulosis: No Ulcer: No Crohn's Disease: No Obstructive Bowel: No Hiatal Hernia: No Genital/Urinary Problems Renal Disease: No Kidney Stones: No Polycystic Kidney Disease: No Neurogenic Bladder: No Inguinal Hernia: No Dialysis: No Reproductive Problems Breast Cancer: No Endometriosis: No Fibroids: No Genital Herpes: No Gonorrhea: No Pelvic Inflammatory Disease: No Polycystic Ovarian Syndrome: No Previous Pregnancies: Yes Syphilis: No Uterine Prolapse: No Musculoskeletal Problems Muscular Dystrophy: No Myasthenia Gravis: No Marfan's Syndrome: No Bone Cancer: No Arthritis: No Gout: No Scoliosis: No Carpal Tunnel Syndrome: No Fibromyalgia: No Fractures: No Degenerative Joint Disease: No Osteomyelitis: No Head,Eye,Nose,Throat Problems Cataracts: No Glaucoma: No Blind: No Retinal Detachment: No Macular Degeneration: No Chronic Ear Infections: No Deafness: No Eye Prosthesis: No Endocrine Problems Diabetes Mellitus Type 1: No Diabetes Mellitus Type 2: No Hypoglycemia: No Cherelle's Syndrome: No José's Disease: No Hyperthyroidism: No Hypothyroidism: No Thyroid Cancer: No Parathyroid Disease: No Pituitary Disease: No Systemic Lupus Erythematosus: No Syndrome of Inappropriate Antidiuretic Hormone: No Adrenal Disease: No Graves' Disease: No Blood Problems Anemia: No Leukemia: No Hemophilia: No Thalassemia: No Sickle Cell Disease: No Clotting Problems: No Psychologic Problems Schizophrenia: No Recreational Drug Use: No Bipolar Disorder: No Depression: No Anxiety: No Other Problems Hospitalization: No Down Syndrome: No Autism: No Developmental Delay: No Cosmetic Surgery: No Hepatitis A: No Hepatitis B: No Hepatitis C: No Communicable Disease: No Cancer: No Cervical Cancer: No Lung Cancer: No Ovarian Cancer: No Surgical History Angioplasty: No Appendectomy: No Bariatric Surgery: No Visit OB Visit Log OB Flowsheet Initial Weight: Not Recorded Date -?-?-?-?-?-?-?-?-?-?-?-?- EGA Weight Edema CTX Effacement BP Fundal ht Pres Dilation Effacement Station Visit Note Alb Glu FHR Mov 05/07/24 -?-?-?-?-?-?-?-?-?-?-?-?- 32w 2d 67.642 kg 110/73 150 06/18/24 -?-?-?-?-?-?-?-?-?-?-?-?- 38w 2d 84.538 kg 108/67 - A0 L2 - Current : - Scheduled on June 24 5 - 2 previous C-sections No contractions/ LOF/VB, reports good FM No HARDIN/VC/RUQ/Epig pain Patient to arrive at the hospital at 10: 00 AM on the day of surgery, entering through the main door. No food or drink after 10:00 PM the night before the procedure. No further appointments scheduled before the date. 145 [facility] Calculator Estimated Delivery Date Method Current WG Current Estimate 06/30/24 Ultrasound #1 38w 5d Other Estimates 08/06/24 LMP (Uncertain) 33w 3d 06/28/24 Ultrasound #2 39w 0d Office Procedures OB Clinic LOC & Office Proc's Nursing/Assessment Patient Status: Established Patient OB Clinic Nursing Assessment: BP Monitoring, Medication Reconciliation, Update PMH in EMR and Vital Signs OB Clinic Coordination of Care: Consent,records obtained, informed consent, Education Simp Pt/Fam, Lab and Imaging orders and Staff clarify orders Special Needs: Heart tones Established Patient Charge Established Patient Point Assignment: 120 Established Patient Point Charge: EP Level 4 (120-155)
== END 2024-06-11 15:47 | disposition home or self-care (01) ==
LOC: HODSOBC 15:06
PROVIDERS: PCP Obstetrics & Gynecology; Referring Provider Obstetrics & Gynecology; Supervising Provider Obstetrics & Gynecology; Visit Provider Obstetrics & Gynecology
DX: Z34.83 Encounter for supervision of other normal pregnancy, third trimester (principal); Z3A.00 Weeks of gestation of pregnancy not specified
CPT/HCPCS: 99214; G0463

== ENCOUNTER 2024-06-18 15:01 | Outpatient (AMB) | payer MEDICAID, SELFPAY ==
--- NOTE | 2024-06-18 15:35 | OBCLNT_ITS ---
Vital Signs 06/18/24 15:36 Height 1.68 m Height Method Stated Weight 84.538 kg Weight Measurement Method Standing Scale BMI 29.9 BP 108/67 Blood Pressure Source Automatic Cuff Blood Pressure Location Left Upper Arm Position Sitting Respiration 16 Pulse 64 Pulse Source Monitor Temp 97.2 F Temp Source Oral Pulse Oximetry (%) 98 Oxygen Delivery Method Room Air Allergies/Home Meds Allergies & Medications Allergies No Known Allergies Allergy (Verified 06/18/24 15:38) Medication Reconciliation No Known Home Medications 05/07/24 [History Confirmed 06/18/24] Intake Visit Data Collection New Patient or Established: Established Patient (seen at [facility] within 3 years) Reason for Visit:: OB Weekly Seen by Clinical Staff ONLY (RN/MA): No Manager Grocery Required: Yes Manager Grocery's name/title: [employer] Do You Feel Safe at Home: Yes Authorities Contacted: N/A PCP or OBGYN visit in last 3 months: Yes Date of Last PCP or OBGYN visit: 06/11/24 Hx Now: Yes Are you currently on any form of Control: No Pain Present Currently: No Pain Scale Used: Newberry-Hernandez/Numerical Pain scale:: 0 Smoking Status Smoking Status: Never smoker Questionnaires Covid-19 Vaccine Questionnaire Has patient been vacinated for Covid-19 Have you been vacinated for Covid-19: Yes PHQ-9 PHQ-2 Over the last 2 weeks, how often have you been bothered by any of the following problems? 1. Little interest or pleasure in doing things: not at all 2. Feeling down, depressed, or hopeless: not at all Total score: 0 PHQ-9 3. Trouble falling or staying asleep, or sleeping too much: Not at all 4. Feeling tired or having little energy: Not at all 5. Poor appetite or overeating: Not at all 6. Feeling bad about yourself - or that you are a failure or have let yourself or your family down: Not at all 7. Trouble concentrating on things, such as reading the newspaper or watching television: Not at all 8. Moving or speaking so slowly that other people could have noticed? - Or the opposite - being so fidgety or restless that you have been moving around a lot more than usual: not at all 9. Thoughts that you would be better off or of hurting yourself in some way: Not at all Total score: 0 If you checked off any problems, how difficult have these problems made it for you to do your work, take care of things at home, or get along with other people?: not difficult at all Source: Developed by Drs. Jose Manuel Jauregui, Jessika Blankenship, Long Kang and colleagues, with an educational eugene from [employer]. Depression screen completed yes Social History Living Situation History Marital Status: Lives With: Family Housing: House Tobacco History Smoking Status: Never smoker Second Hand Smoke Exposure: No Alcohol History Alcohol Intake: Never Substance Use History Substance Use: none Domestic Abuse History Do You Feel Safe at Home: Yes Past Medical History Past Medical History Have you ever been diagnosed with any of the following: Neurological Problems Cerebrovascular Accident (CVA): No Transient Ischemic Attacks (TIA): No Dementia: No Alzheimer's Disease: No Parkinson's Disease: No Brain Tumor: No Meningitis: No Seizures: No Epilepsy: No Multiple Sclerosis: No Cerebral Palsy: No Amyotrophic Lateral Sclerosis (ALS/Lizeth Gehrig's): No Guillain-[place] Syndrome: No Spina Bifida: No Paralysis: No Peripheral Neuropathy: No Madrigal's Palsy: No Subdural Hematoma: No Migraine: No Head Trauma: No Spinal Cord Injury: No Traumatic Brain Injury: No Cardiology Problems Myocardial Infarction: No Cardiac Arrhythmia: No Atrial Fibrillation: No Angina: No Heart Murmur: No Congenital Heart Disease: No Valvular Heart Disease: No Rheumatic Fever: No Cardiomyopathy: No Edema: No Pericarditis: No Hypertension: No Respiratory Problems Chronic Obstructive Pulmonary Disease (COPD): No Asthma: No Bronchitis: No Emphysema: No Pneumonia: No Pulmonary Fibrosis: No Tuberculosis: No Pulmonary Embolism: No Pulmonary Edema: No Hx Cough: No Cough: No Wheezing: No Chest Deformities: No Smoking: No Smoking Exposure: No Tobacco Use: No Stomache/Intestinal Problems Liver Cancer: No Hepatitis: No Cirrhosis: No Pancreatic Cancer: No Pancreatitis: No Celiac Disease: No Gall Bladder Disease: No Ulcerative Colitis: No Diverticulitis: No Diverticulosis: No Ulcer: No Crohn's Disease: No Obstructive Bowel: No Hiatal Hernia: No Genital/Urinary Problems Renal Disease: No Kidney Stones: No Polycystic Kidney Disease: No Neurogenic Bladder: No Inguinal Hernia: No Dialysis: No Reproductive Problems Breast Cancer: No Endometriosis: No Fibroids: No Genital Herpes: No Gonorrhea: No Pelvic Inflammatory Disease: No Polycystic Ovarian Syndrome: No Previous Pregnancies: Yes Syphilis: No Uterine Prolapse: No Musculoskeletal Problems Muscular Dystrophy: No Myasthenia Gravis: No Marfan's Syndrome: No Bone Cancer: No Arthritis: No Gout: No Scoliosis: No Carpal Tunnel Syndrome: No Fibromyalgia: No Fractures: No Degenerative Joint Disease: No Osteomyelitis: No Head,Eye,Nose,Throat Problems Cataracts: No Glaucoma: No Blind: No Retinal Detachment: No Macular Degeneration: No Chronic Ear Infections: No Deafness: No Eye Prosthesis: No Endocrine Problems Diabetes Mellitus Type 1: No Diabetes Mellitus Type 2: No Hypoglycemia: No Cherelle's Syndrome: No Rock's Disease: No Hyperthyroidism: No Hypothyroidism: No Thyroid Cancer: No Parathyroid Disease: No Pituitary Disease: No Systemic Lupus Erythematosus: No Syndrome of Inappropriate Antidiuretic Hormone: No Adrenal Disease: No Graves' Disease: No Blood Problems Anemia: No Leukemia: No Hemophilia: No Thalassemia: No Sickle Cell Disease: No Clotting Problems: No Psychologic Problems Schizophrenia: No Recreational Drug Use: No Bipolar Disorder: No Depression: No Anxiety: No Other Problems Hospitalization: No Down Syndrome: No Autism: No Developmental Delay: No Cosmetic Surgery: No Hepatitis A: No Hepatitis B: No Hepatitis C: No Communicable Disease: No Cancer: No Cervical Cancer: No Lung Cancer: No Ovarian Cancer: No Surgical History Angioplasty: No Appendectomy: No Bariatric Surgery: No History of Present Illness HPI Narrative Chayito Villanueva, a woman with a history of two previous C-sections, presents for a routine check-up. She reports experiencing tightness but no contractions at this time. The patient mentions that her abdomen is becoming tight, but she denies having any contractions. She has not experienced any signs of labor onset. The patient's history of two previous C-sections is noted, which informs the current management plan. No other symptoms or concerns are reported by the patient during this visit. Obstetric History - GTPAL: A0 L2 - Current : - Scheduled on June 24, 2024 - history: - 2 previous C-sections No contractions/ LOF/VB, reports good FM No HARDIN/VC/RUQ/Epig pain Review of Systems Review of Systems Systems Reviewed: All systems reviewed, normal except as documented Visit OB Visit Log OB Flowsheet Initial Weight: Not Recorded Date -?-?-?-?-?-?-?-?-?-?-?-?- EGA Weight Edema CTX Effacement BP Fundal ht Pres Dilation Effacement Station Visit Note Alb Glu FHR Mov 05/07/24 -?-?-?-?-?-?-?-?-?-?-?-?- 32w 2d 67.642 kg 110/73 150 06/18/24 -?-?-?-?-?-?-?-?-?-?-?-?- 38w 2d 84.538 kg 108/67 - A0 L2 - Current : - Scheduled on June 24 5 - 2 previous C-sections No contractions/ LOF/VB, reports good FM No HARDIN/VC/RUQ/Epig pain Patient to arrive at the hospital at 10: 00 AM on the day of surgery, entering through the main door. No food or drink after 10:00 PM the night before the proc edure. No further appointments scheduled before the date. 145 [facility] Calculator Estimated Delivery Date Method Current WG Current Estimate 06/30/24 Ultrasound #1 38w 4d Other Estimates 08/06/24 LMP (Uncertain) 33w 2d 06/28/24 Ultrasound #2 38w 6d Exam General Limitations: no limitations General Appearance: alert, in no apparent distress, comfortable, cooperative, healthy appearing, well developed and well groomed Head Head exam: atraumatic, normocephalic and normal inspection Chest Chest inspection: Present normal inspection and symmetric chest wall rise Abdominal Abdominal exam: Present soft and normal bowel sounds Psych Psychiatric exam: Present normal affect and normal mood Skin Skin exam: Present warm, dry, intact and normal color Assessment & Plan Diagnosis / Problem List (1) Maternal care for low transverse scar from previous delivery: Status: Acute (2) Anemia affecting in third trimester: Status: Acute (3) Supervision of high risk , unspecified, third trimester: Status: Acute Plan Problem List , history of two sections Assessment Patient is a woman with a history of 2 previous C-sections, currently at term. No active contractions reported, though patient notes some tightening. heart rate auscultated and found to be normal. movement observed during examination. scar from previous surgeries visualized. Plan Schedule for 06/24/2024 at 12:30 PM. Patient to arrive at the hospital at 10:00 AM on the day of surgery, entering through the main door. No food or drink after 10:00 PM the night before the procedure. No further appointments scheduled before the date. Educated the patient on labor signs, including regular contractions, lower back pain, and changes in vaginal discharge. Advised avoiding heavy lifting and getting adequate rest. Instructed to contact the office immediately if any signs occur. Discussed the importance of a balanced diet rich in folic acid, iron, and calcium, and provided a list of recommended and to-avoid foods. Emphasized avoiding high-sugar foods to reduce gestational diabetes risk. Encouraged hydration and frequent, small meals for energy.. Office Procedures OB Clinic LOC & Office Proc's Nursing/Assessment Patient Status: Established Patient OB Clinic Nursing Assessment: BP Monitoring, Medication Reconciliation, Update PMH in EMR and Vital Signs OB Clinic Coordination of Care: Consent,records obtained, informed consent, Education Simp Pt/Fam, Results/Orders obtained and Staff clarify orders Special Needs: Heart tones Established Patient Charge Established Patient Point Assignment: 110 Established Patient Point Charge: EP Level 3 (80-115)
[2024-06-18 15:36] VITALS: BP 108/67; PULSE 64; RESP 16; TEMP 36.2; O2SAT 98; BMI 29.9
== END 2024-06-18 15:48 | disposition home or self-care (01) ==
LOC: HODSOBC 15:01
PROVIDERS: PCP Obstetrics & Gynecology; Referring Provider Obstetrics & Gynecology; Supervising Provider Obstetrics & Gynecology; Visit Provider Obstetrics & Gynecology
DX: O09.893 Supervision of other high risk pregnancies, third trimester (principal); Z3A.38 38 weeks gestation of pregnancy; O34.211 Maternal care for low transverse scar from previous cesarean delivery; O99.013 Anemia complicating pregnancy, third trimester
CPT/HCPCS: 99213; G0463

== ENCOUNTER 2024-06-24 10:18 | Inpatient (IN) | payer MEDICAID, SELFPAY ==
[2024-06-24] VITALS (41 sets, daily range): BP systolic 101–136; BP diastolic 55–83; PULSE 55–107; RESP 17–22; TEMP 36.3–36.7; O2SAT 92–100; BMI 28.8
--- NOTE | 2024-06-24 10:45 | PD.LDHP ---
Documentation for date of: 06/24/24 OB Labor/Induct. HPI History of Present Illness Chief complaint: Scheduled Repeat Low Transverse Section : 4 pregnancies: 0 Living children: 2 History of Abortions: Spontaneous and Elective: 1 History of present illness: Chayito is a 28-year-old patient presenting for a scheduled repeat low transverse section at 39 weeks and 1 day gestation. Her estimated due date is 06/23/2024, based on a 14-week and 2-day ultrasound performed on 01/02/2024, which was later confirmed by a 24-week anatomy ultrasound. The patient reports no current complaints. She denies experiencing contractions, leakage of fluid, or vaginal bleeding. She also reports adequate movement. Chayito has no headache, visual symptoms, right upper quadrant pain, or epigastric pain. Her has been uncomplicated, with initial care provided by Dr. Mott at [facility]. Chayito's obstetric history is significant for two previous deliveries. She is scheduled for her third section today at 12:30 PM. Diagnostic Test Results and Labs: - First ultrasound (01-02-2024): 14 weeks and 2 days, estimated due date 06-30-24 - Second ultrasound (03-12-2024): 24 weeks and 4 days, due date 06-28-2024 - Initial labs (11-21-2023): Blood group: A-positive Antibody screen: negative Rubella: non-immune RPR: non-reactive Hepatitis B surface antigen: negative HIV: negative Gonorrhea and chlamydia: negative - One-hour glucose tolerance test (03-27-2024): 122 - Hemoglobin (03-27-2024): 9.5 - Cystic fibrosis screening: negative - NIPT (Non-Invasive Testing): negative - AFP (Alpha-Fetoprotein): negative Review of Systems General: Negative for fever, chills, fatigue, weight loss. HEENT: Negative for headache, visual symptoms. Cardiovascular: Negative for contractions. Gastrointestinal: Negative for right upper quadrant pain, epigastric pain. Genitourinary: Negative for leakage of fluid, vaginal bleeding. Review of Systems Review of Systems Systems Reviewed: All systems reviewed, normal except as documented Meds Home Medications and Allergies Home Medications ?Medication ?Instructions ?Recorded ?Confirmed ?Type ferrous sulfate 325 mg (65 mg mg 06/24/24 History iron) tablet (FeroSul) Allergies Allergy/AdvReac Type Severity Reaction Status Date / Time No Known Allergies Allergy Verified 06/24/24 10:49 OB Exam Constitutional Constitutional: no acute distress Routine HEENT Exam Head: Present normocephalic and atraumatic Eye: Present EOMI and PERRL ENT: Present mucous membranes moist Routine Neck Exam Neck: Present supple and trachea midline Routine Cardiovascular Exam Cardiovascular: Present RRR Routine Abdominal Exam Abdominal: Present soft and normoactive bowel sounds Detailed Labor and Delivery Exam Baseline heart rate: 145 monitor accelerations: 15x15 monitor decelerations: None penitentiary variability: Average (6-10) Routine Extremities Exam Extremities: Present full ROM Routine Skin Exam Skin: Present intact, dry and warm Routine Neurological Exam Neurological: Present alert, oriented X3 and CN II-XII intact Routine Psychiatric Exam Psychiatric: Present normal affect and normal thought process OB Assessment & Plan Assessment and Plan (1) Maternal care for low transverse scar from previous delivery: Status: Acute Assessment and plan: Chayito, a 28-year-old at 39 weeks and 1 day gestation, presents for scheduled repeat low transverse section with a history of 2 previous deliveries. Scheduled repeat section Assessment: Patient is a 28-year-old at 39 weeks and 1 day gestation based on a 14-week and 2-day ultrasound dated 01/02/2024, which was confirmed by a 24-week anatomy ultrasound. She has a history of 2 previous deliveries. Currently, she reports no contractions, leakage of fluid, or vaginal bleeding. She denies headache, visual symptoms, right upper quadrant or epigastric pain. heart tones are 145 with average variability and accelerations present, without decelerations. Fundal height measures 39 cm. Plan: - Admit to inpatient labor and delivery for scheduled repeat low transverse section at 12:30 today - Establish IV access with LR at 125 mL/hr for maintenance fluids - Keep patient NPO for procedure - Apply sequential compression devices (SCDs) for DVT prophylaxis - Administer cefazolin as preoperative antibiotic prior to surgery start - Perform surgical site prep - Place Boothe catheter - Review and obtain signature on consent forms - Review and place blood transfusion consent on hold for emergency transfusion as needed Anemia Assessment: Patient's hemoglobin was 9.5 g/dL in the first trimester, indicating anemia. Plan: - Monitor hemoglobin levels perioperatively - Be prepared for potential blood transfusion if needed Rubella non-immune status Assessment: labs indicate patient is rubella non-immune. Plan: - Educate patient on importance of rubella vaccination - Plan for rubella vaccination before discharge, if not contraindicated
[2024-06-24 12:06] LABS: Basophils % (Auto) 0 % (0-2.5); Eosinophils % (Auto) 0 % (0-10); Hematocrit 34.4 % (36.0-46.0); Hemoglobin 11.1 g/dL (12.0-16.0); Immature Granulocytes % (Auto) 0 % (0-0); Immature Granulocytes Auto 0.03 Thou/mm3 (0.00-0.00); Lymphocytes # (Auto) 1.4 Thou/mm3 (1.0-4.8); Lymphocytes % (Auto) 18 % (10-50); Mean Corpuscular HGB Conc 32.3 g/dl (31.0-37.0); Mean Corpuscular Hemoglobin 26.6 pg (25.0-35.0); Mean Corpuscular Volume 82 fL (80-100); Monocytes # (Auto) 0.6 Thou/mm3 (0.0-0.8); Monocytes % (Auto) 8 % (0-12); Neutrophils % (Auto) 74 % (37-80); Nucleated Red Blood Cell % 0 /100 WBC (0); Platelet Count 164 Thou/mm3 (140-440); RDW Standard Deviation 45.9 fL (36.4-46.3); Red Blood Count 4.18 Miln/mm3 (4.00-5.20); White Blood Count 8.1 Thou/mm3 (3.6-11.0)
[2024-06-24] MEDS: CITRIC ACID/SODIUM CITR 15 ML UDC (BICITRA) 30 ML PO (12:20)
[2024-06-24] MEDS: ceFAZolin/D5W 2 GM IV 2 GM/100 ML BAG IV (12:20)
[2024-06-24] MEDS: FAMOTIDINE INJ 10 MG/ML VIAL 2 ML 20 MG IV (12:21)
[2024-06-24 12:44] LABS: Syphilis Nonreactive (Nonreactive)
--- NOTE | 2024-06-24 12:54 | ESOP_ITS ---
Operative Note - [employer]ER Procedure Date of procedure: 06/24/24 Procedure Performed: Repeat low-transverse section Indication: 28-year-old G4, P2 at 39 weeks and 1 day with previous x 2 For scheduled repeat Anesthesia type: Spinal Procedure description: Informed consent was obtained. The patient was brought to the operating room and identified with two patient identifiers. She was placed in the supine position, and spinal anesthesia was administered. After confirming adequate anesthesia, the abdomen and perineum were prepped and draped in the usual sterile fashion. A Boothe catheter was inserted for continuous bladder drainage. A vertical midline skin incision was made using a scalpel and carried through subcutaneous tissue to the rectus fascia. The previous skin scar was identified and excised in its entirety. The fascia was incised vertically and dissected off the rectus muscles both superiorly and inferiorly. The rectus bellies were in the midline, and the peritoneum was entered bluntly with the surgeon?s finger. The peritoneal opening was extended to allow adequate exposure. An Kye O-ring retractor was placed for optimal visualization. The lower uterine segment was palpated, and the bladder flap was reflected inferiorly. A low transverse uterine incision (Trisha Bruce) was made with a scalpel and extended bluntly. The amniotic membranes were ruptured, and clear fluid was released. The fetus was in vertex presentation. A Mityvac vacuum device was applied to the head. Vacuum-assisted delivery was accomplished without any pop-offs. A single loop of nuchal cord was noted and reduced. The shoulders and body were delivered smoothly with gentle fundal pressure. The umbilical cord was doubly clamped and cut, and the was handed to the awaiting team. Cord gases were obtained. The placenta was delivered with gentle traction on the cord. The uterine cavity was cleared of membranes and clots. The hysterotomy angles were secured with Allis clamps. The uterine incision was closed in two layers using #1 Monocryl: the first layer was a running locked suture to approximate the myometrium, and the second layer imbricated the serosa and myometrium. Hemostasis was confirmed. The Kye retractor was removed. Peritoneal edges and rectus muscles were reapproximated. Rectus fascia was closed with running 0 Vicryl. The subcutaneous tissue was irrigated with warm saline, and bleeding points were cauterized using Bovie electrocautery. Subcutaneous tissue was approximated with 3-0 Vicryl. The skin was closed using INSORB absorbable anmol. A sterile dressing was applied. The patient was cleaned, undraped, and transferred to the recovery room in stable and awake condition. She tolerated the procedure well. No complications were encountered. All counts were correct ?2. Specimen: none Estimated blood loss (ml): 700 Complications: none Surgical staff Operation Date: 06/24/24 12:45 Case Staff RISK CONTROL ANALYST: Dung Lloyd RISK CONTROL ANALYST: Sanjay Odom RNembossed or impressed lettering painter: Ayaan Cadet Diagnosis Discharge Diagnosis (1) Maternal care for low transverse scar from previous delivery: Status: Acute (2) Anemia affecting in third trimester: Status: Acute (3) Supervision of high risk , unspecified, third trimester: Status: Acute Problem List Completed Was Problem List Reviewed/Reconciled?: Yes
--- NOTE | 2024-06-24 13:31 | PD.LDDELS ---
Data ([place]) Data : 4 Para: 2 Term: 2 : 0 : 1 Delivery Data ([place]) Labor Data ROM Date: 06/24/24 ROM Time: 13:02 Rupture Type: AROM Amniotic Fluid: Clear Delivery Data Labor Onset Stage 1 Date: 06/24/24 Labor Onset Stage 1 Time: 13:02 Labor Onset Stage 2 Date: 06/24/24 Labor Onset Stage 2 Time: 13:02 Delivery Date: 06/24/24 Delivery Time: 13:03 Placenta Delivery Date: 06/24/24 Placenta Delivery Time: 13:04 Delivered by: Doc Camarillo Delivery nurse: Amee Higgins Other staff at delivery: Nursery Nurse Other staff at delivery: Nursery Nurse Other staff at delivery: Zaira Christy Other staff at delivery: Noreen Geller Delivery Method Delivery: Delivery Type: Repeat Anesthesia Type Primary Anesthesia: Spinal Data ([place]) [place] Data Gender: Male Infant Weight Grams: 3480 1 Minute Total: 9 5 Minute Total: 9
[2024-06-24] MEDS: KETOROLAC INJ 30 MG/ML VIAL IVP (14:11)
[2024-06-24] MEDS: OXYTOCIN in NS 20 units 20 UNIT/1,000 ML BAG 125 UNIT IV (18:19)
[2024-06-25 01:05] VITALS: BP 127/63; PULSE 63; RESP 20; TEMP 36.7; O2SAT 97
[2024-06-25] MEDS: RINGERS LACTATED 1000 ML 1,000 ML 125 ML IV (02:38)
[2024-06-25 05:00] VITALS: BP 109/68; PULSE 66; RESP 20; TEMP 36.8; O2SAT 96
[2024-06-25 06:51] LABS: Basophils % (Auto) 0 % (0-2.5); Eosinophils % (Auto) 0 % (0-10); Hemoglobin 9.9 g/dL (12.0-16.0); Immature Granulocytes % (Auto) 1 % (0-0); Immature Granulocytes Auto 0.05 Thou/mm3 (0.00-0.00); Lymphocytes # (Auto) 1.6 Thou/mm3 (1.0-4.8); Lymphocytes % (Auto) 17 % (10-50); Mean Corpuscular Volume 82 fL (80-100); Monocytes # (Auto) 0.7 Thou/mm3 (0.0-0.8); Monocytes % (Auto) 7 % (0-12); Neutrophils # (Auto) 6.8 Thou/mm3 (1.8-7.7); Neutrophils % (Auto) 75 % (37-80); Nucleated Red Blood Cell % 0 /100 WBC (0); Platelet Count 169 Thou/mm3 (140-440); RDW Standard Deviation 45.1 fL (36.4-46.3); Red Blood Count 3.66 Miln/mm3 (4.00-5.20); White Blood Count 9.1 Thou/mm3 (3.6-11.0)
[2024-06-25 07:30] VITALS: BP 129/72; PULSE 72; RESP 18; TEMP 36.8; O2SAT 98
[2024-06-25] MEDS: DOCUSATE SOD 100 MG CAPSULE PO (09:19)
--- NOTE | 2024-06-25 09:26 | PD.LDPPPRG ---
Subjective Subjective Interval history: Delivery type: , vertical skin with transverse uterine incision Patient doing well this morning. No acute complaints. Ambulating, tolerating p.o. and voiding without difficulty. HTN/Pre-Eclampsia screen: No chest pain, shortness of breath, headache, visual changes, epigastric or right upper quadrant pain. Breast-feeding, lochia diminishing. Bowel: Flatus+/ BM+ Exam Vital Signs Temp Pulse Resp BP Pulse Ox O2 Del Method 98.3 F 72 18 129/72 98 Room Air 06/25/24 07:30 06/25/24 07:30 06/25/24 07:30 06/25/24 07:30 06/25/24 07:30 06/25/24 07:30 Constitutional Constitutional: no acute distress Routine HEENT Exam Head: Present normocephalic and atraumatic Eye: Present EOMI and PERRL ENT: Present mucous membranes moist Routine Neck Exam Neck: Present supple and trachea midline Routine Respiratory Exam Respiratory: Present chest non-tender, lungs clear, normal breath sounds and no resp distress Routine Cardiovascular Exam Cardiovascular: Present RRR Routine Abdominal Exam Abdominal: Present soft and normoactive bowel sounds Routine Extremities Exam Extremities: Present full ROM Routine Skin Exam Skin: Present intact, dry and warm Routine Neurological Exam Neurological: Present alert, oriented X3 and CN II-XII intact Routine Psychiatric Exam Psychiatric: Present normal affect and normal thought process Objective Labs 06/25/24 06:00 Labs: Laboratory Results - last 24 hr 06/24/24 06/25/24 11:30 06:00 WBC 8.1 9.1 RBC 4.18 3.66 L Hgb 11.1 L 9.9 L Hct 34.4 L 30.0 L MCV 82 82 MCH 26.6 27.0 MCHC 32.3 33.0 RDW Std Deviation 45.9 45.1 Plt Count 164 169 Neut % (Auto) 74 75 Lymph % (Auto) 18 17 [place] % (Auto) 8 7 Eos % (Auto) 0 0 Baso % (Auto) 0 0 Neut # (Auto) 6.0 6.8 Lymph # (Auto) 1.4 1.6 [place] # (Auto) 0.6 0.7 Eos # (Auto) 0.0 0.0 Baso # (Auto) 0.0 0.0 Immature Gran # (Auto) 0.03 H 0.05 H Absolute Nucleated RBC 0.00 0.00 Immature Gran % 0 1 H Nucleated RBC % 0 0 Syphilis Serology Nonreactive Blood Type A Positive Antibody Screen NEGATIVE Blood Bank Wristband ID Yes Assessment & Plan Problem List (1) Maternal care for low transverse scar from previous delivery: Status: Acute Assessment and plan: 1. Continue routine /post-op care 2. Labs reviewed, cbc appropriate 3. Remove dressing/Boothe 4. Encourage to ambulate, shower 5. Encourage PO intake, breast feeding (2) Anemia affecting in third trimester: Status: Acute (3) Supervision of high risk , unspecified, third trimester: Status: Acute Time Spent With Patient Time: Total time spent is greater than 50% in coordination of care (as documented) at patient's floor/unit and/or counseling patient:
--- NOTE | 2024-06-25 10:50 | CHAP ---
Gave encouragement to couple.
[2024-06-25 11:30] VITALS: BP 121/79; PULSE 65; RESP 18; TEMP 36.9; O2SAT 97
[2024-06-25] MEDS: IBUPROFEN TAB 400 MG TABLET 800 MG PO (19:28)
[2024-06-25 19:32] VITALS: BP 132/72; PULSE 70; RESP 20; TEMP 36.8; O2SAT 98
[2024-06-26 04:02] VITALS: BP 113/61; PULSE 62; RESP 21; TEMP 36.8; O2SAT 98
[2024-06-26] MEDS: SIMETHICONE 80 MG CHEW PO (04:39)
[2024-06-26] MEDS: ACETAMINOPHEN 325 MG TABLET 650 MG PO (04:40)
[2024-06-26 07:59] LABS: Basophils % (Auto) 0 % (0-2.5); Eosinophils # (Auto) 0.1 Thou/mm3 (0.0-0.5); Eosinophils % (Auto) 1 % (0-10); Hematocrit 27.4 % (36.0-46.0); Hemoglobin 8.9 g/dL (12.0-16.0); Immature Granulocytes % (Auto) 0 % (0-0); Immature Granulocytes Auto 0.03 Thou/mm3 (0.00-0.00); Lymphocytes # (Auto) 1.7 Thou/mm3 (1.0-4.8); Lymphocytes % (Auto) 18 % (10-50); Mean Corpuscular HGB Conc 32.5 g/dl (31.0-37.0); Mean Corpuscular Hemoglobin 25.9 pg (25.0-35.0); Mean Corpuscular Volume 80 fL (80-100); Monocytes # (Auto) 0.7 Thou/mm3 (0.0-0.8); Monocytes % (Auto) 8 % (0-12); Neutrophils # (Auto) 6.7 Thou/mm3 (1.8-7.7); Neutrophils % (Auto) 73 % (37-80); Nucleated Red Blood Cell % 0 /100 WBC (0); Platelet Count 179 Thou/mm3 (140-440); RDW Standard Deviation 44.3 fL (36.4-46.3); Red Blood Count 3.43 Miln/mm3 (4.00-5.20); White Blood Count 9.2 Thou/mm3 (3.6-11.0)
[2024-06-26 08:10] VITALS: BP 116/71; PULSE 79; RESP 18; TEMP 36.6; O2SAT 97
--- NOTE | 2024-06-26 08:25 | PD.LDPPPRG ---
Subjective Subjective Interval history: The patient is a 28-year-old status post 2 days ago. She is postop day #2. Dr. Camarillo performed her . She is a classical scar on her abdomen and he performed a classical incision on her skin. She had a low transverse section on the uterus. Patient is [place]-speaking only and her exam and history is taken through [facility]. Patient feels well she is not bleeding heavily she is breast and bottlefeeding her pain is controlled she would like to go home. She is tolerating a general diet. Exam Vital Signs Temp Pulse Resp BP Pulse Ox O2 Del Method 98.3 F 62 21 H 113/61 98 Room Air 06/26/24 04:02 06/26/24 04:02 06/26/24 04:02 06/26/24 04:02 06/26/24 04:02 06/26/24 04:02 Narrative Exam Fundus firm at umbilicus classical skin incision clean dry and intact no significant edema or erythema of lower extremities Objective Labs 06/26/24 06:50 Labs: Laboratory Results - last 24 hr 06/26/24 06:50 WBC 9.2 RBC 3.43 L Hgb 8.9 L Hct 27.4 L MCV 80 MCH 25.9 MCHC 32.5 RDW Std Deviation 44.3 Plt Count 179 Neut % (Auto) 73 Lymph % (Auto) 18 [place] % (Auto) 8 Eos % (Auto) 1 Baso % (Auto) 0 Neut # (Auto) 6.7 Lymph # (Auto) 1.7 [place] # (Auto) 0.7 Eos # (Auto) 0.1 Baso # (Auto) 0.0 Immature Gran # (Auto) 0.03 H Absolute Nucleated RBC 0.00 Immature Gran % 0 Nucleated RBC % 0 Assessment & Plan Problem List (1) Maternal care for low transverse scar from previous delivery: Problem details: Discharge home all instructions given Status: Acute (2) Anemia affecting in third trimester: Status: Acute (3) Supervision of high risk , unspecified, third trimester: Status: Acute Time Spent With Patient Time: Total time spent is greater than 50% in coordination of care (as documented) at patient's floor/unit and/or counseling patient: Time with patient: less than 15 minutes
[2024-06-26] MEDS: MEASLES, MUMPS & RUBELLA VACC 0.5 ML VIAL SCi (08:27)
[2024-06-26] MEDS: DOCUSATE SOD 100 MG CAPSULE PO (08:27)
--- NOTE | 2024-06-26 08:28 | ESDS_ITS ---
DS: Providers Provider Date of admission: 06/24/24 10:18 Primary care physician: Physician No Primary/Family Admitting Provider: Doc Camarillo MD Attending Provider on Admission: Doc Camarillo MD Consults: 06/24/24 14:25 Referral Routine Comment: Attending Provider on DC: [facility] ([facility]) Discharging Provider: Jayna Lawton MD ([facility]) Anticipated date of discharge: 06/26/24 DS: Diagnosis Discharge Diagnosis (1) Maternal care for low transverse scar from previous delivery: Status: Acute Assessment & Plan: Instructions were given patient is stable and meds called in. Discharge home (2) Supervision of high risk , unspecified, third trimester: Status: Acute (3) Term delivered: Status: Acute Problem List Completed Was Problem List Reviewed/Reconciled?: Yes Summary/Hosp Course Brief History: Chayito is a 28-year-old patient presenting for a scheduled repeat low transverse section at 39 weeks and 1 day gestation. Her estimated due date is 06/23/2024, based on a 14-week and 2-day ultrasound performed on 01/02/2024, which was later confirmed by a 24-week anatomy ultrasound. The patient reports no current complaints. She denies experiencing contractions, leakage of fluid, or vaginal bleeding. She also reports adequate movement. Chayito has no headache, visual symptoms, right upper quadrant pain, or e pigastric pain. Her has been uncomplicated, with initial care provided by Dr. Mott at [facility]. Chayito's obstetric history is significant for two previous deliveries. She is scheduled for her third section today at 12:30 PM. Diagnostic Test Results and Labs: - First ultrasound (01-02-2024): 14 weeks and 2 days, estimated due date 06-30-24 - Second ultrasound (03-12-2024): 24 weeks and 4 days, due date 06-28-2024 - Initial labs (11-21-2023): Blood group: A-positive Antibody screen: negative Rubella: non-immune RPR: non-reactive Hepatitis B surface antigen: negative HIV: negative Gonorrhea and chlamydia: negative - One-hour glucose tolerance test (03-27-2024): 122 - Hemoglobin (03-27-2024): 9.5 - Cystic fibrosis screening: negative - NIPT (Non-Invasive Testing): negative - AFP (Alpha-Fetoprotein): negative Review of Systems General: Negative for fever, chills, fatigue, weight loss. HEENT: Negative for headache, visual symptoms. Cardiovascular: Negative for contractions. Gastrointestinal: Negative for right upper quadrant pain, epigastric pain. Genitourinary: Negative for leakage of fluid, vaginal bleeding. Peripartum Data Delivery Method: Low Transverse Procedures: Procedures Operation Date: 06/24/24 12:45 Actual Procedure Side Surgeon p in OB Doc Camarillo MD complications: none Status at Discharge Cognitive/behavioral status at discharge: Alert and oriented x 3 Functional status at discharge: independent ambulation Overall status at discharge: patient is progressing back to baseline Time Spent with Patient Time attestation: Total time spent providing and/or coordinating discharge services: Time spent: Less than 30 minutes Specific discharge activities: Call for heavy vaginal bleeding fevers or depression Exam Vital Signs Temp Pulse Resp BP Pulse Ox O2 Del Method 98.3 F 62 21 H 113/61 98 Room Air 06/26/24 04:02 06/26/24 04:02 06/26/24 04:02 06/26/24 04:02 06/26/24 04:02 06/26/24 04:02 Narrative Exam Fundus firm nontender vertical skin incision clean dry and intact no cyanosis clubbing or edema of lower extremities Discharge Plan Plan Patient Disposition: HOME (Self Care) Disposition Comment: Stable Patient condition on transfer: Stable Prescriptions/Referrals Prescriptions/Med Rec: New hydrocodone-acetaminophen 5-325 mg Tablet 1 tab PO Q6H MDD 4 PRN (Reason: Patient rated pain 7 to 8) 5 Days Qty: 20 0RF ibuprofen 400 mg Tablet 800 mg PO Q8HR PRN (Reason: Pain Scale 4-6 (Moderate) 10 Days Qty: 40 0RF docusate sodium [Stool Softener] 100 mg capsule 100 mg PO QDAY 30 Days Qty: 30 0RF Continued ferrous sulfate [FeroSul] 325 mg (65 mg iron) tablet Patient Comments: take 1 tablet by mouth once daily Referrals: Doc Camarillo MD [Physician] - No Primary/Family,Physician [Primary Care Provider] - Patient/Caregiver Discharge Instructions Meds to Beds: Yes Discharge Activity: activity as tolerated Other Discharge Activity Instructions:: Pelvic rest x 6 weeks no heavy lifting or exercise x 6 weeks Other Discharge Diet Instructions: General diet Education Materials: Healthy Weight Loss After , Depression, After Delivery Concerns, Breast Care After , After a , C Section Dc Print Language: Yi Activity Restrictions/Additional Instructions: Call for fevers heavy vaginal bleeding or severe depression. Stand Alone Forms: Kirstie Award Info., Patient Portal Info Letter, DC from Surgery Discharge Order Discharge Orders: Discharge (Routine); Ordered 06/26/24 Ordered By: Jayna Lawton ([facility]) Planned Discharge Date 06/26/24
[2024-06-26] MEDS: IBUPROFEN TAB 400 MG TABLET 800 MG PO (10:42)
== END 2024-06-26 11:14 | disposition home or self-care (01) | DRG 540 ==
LOC: S4SX 13:21 → S4NX 16:12
PROVIDERS: Admitting Provider Obstetrics & Gynecology; Visit Provider Obstetrics & Gynecology
PROC: 10D00Z1 Extraction of Products of Conception, Low, Open Approach (ICD-10-PCS; CPT 59514; principal; 2024-06-24 12:30)
DX: O34.211 Maternal care for low transverse scar from previous cesarean delivery (principal); Z37.0 Single live birth; Z3A.39 39 weeks gestation of pregnancy; O69.81X0 Labor and delivery complicated by cord around neck, without compression, not applicable or unspecified; O99.02 Anemia complicating childbirth; Z23 Encounter for immunization
CPT/HCPCS: 36415; 85025; 86780; 86850; 86900; 86901; 90707; A4649; J0689; J1885; J2274; J2371; J2590; J3490; J7120; A9270; J2270